=== PATIENT | male | born 1955 | race Caucasian/White ===

== ENCOUNTER 2016-04-25 13:19 | Emergency (ER) | payer OTHER ==
[2016-04-25 15:02] VITALS: BP 121/58
--- NOTE | 2016-04-25 15:37 | UC ---
Abdominal Pain Male HPI - HPI Summary HPI Summary: pt reports that he has had intermittent RLQ pain beginning on 04/21/16. Pt is concerned that he may have gall stone, pancreatitis or appendicitis - History of Current Complaint Chief Complaint: UCGeneralIllness Stated Complaint: MED REACTION-DIARRHEA Time Seen by Provider: 04/25/16 15:23 Hx Obtained From: Patient Onset/Duration: Gradual Onset Timing: Intermittent Episodes Lasting: - minutes Severity Initially: Mild Severity Currently: None Location: Discrete At: RLQ Radiates: No Character: Cramping Aggravating Factor(s):: Nothing Associated Signs And Symptoms: Positive: Negative - Allergies/Home Medications Allergies/Adverse Reactions: Allergies Allergy/AdvReac Type Severity Reaction Status Date / Time Penicillins Allergy Intermediate Rash Verified 04/25/16 14:50 PMH/Surg Hx/FS Hx/Imm Hx Previously Healthy: No - see pmh Endocrine History Of: Reports: Diabetes Cardiovascular History Of: Reports: Cardiac Disorders - heart blockage- awaiting follow up, Hypertension - Surgical History Surgical History: Yes Surgery Procedure, Year, and Place: Tonsilectomy, 1960, [facility] - Family History Known Family History: Positive: Hypertension - father, Diabetes - father Negative: Cardiac Disease - Social History Lives: With Family Alcohol Use: None Substance Use Type: None Smoking Status (MU): Never Smoked Tobacco - Immunization History Most Recent Influenza Vaccination: Fall 2014 Review of Systems Constitutional: Negative Skin: Negative Eyes: Negative ENT: Negative Respiratory: Negative Cardiovascular: Negative Gastrointestinal: Abdominal Pain Genitourinary: Negative Motor: Negative Neurovascular: Negative Musculoskeletal: Negative Neurological: Negative Psychological: Negative All Other Systems Reviewed And Are Negative: Yes Physical Exam Triage Information Reviewed: Yes Appearance: Well-Appearing Vital Signs: Initial Vital Signs Temp 98 F 04/25/16 14:52 Pulse 73 04/25/16 14:52 Resp 22 04/25/16 14:52 BP 121/58 04/25/16 14:52 Pulse Ox 100 04/25/16 14:52 Vital Signs Reviewed: Yes ENT Exam: Normal Neck exam: Normal Respiratory Exam: Normal Cardiovascular Exam: Normal Abdominal Exam: Normal Abdomen Description: Positive: Nontender Musculoskeletal Exam: Normal Neurological Exam: Normal Psychological Exam: Normal Skin Exam: Normal Abd Pain Male Course/Dx - Differential Dx/Clinical Impression Differential Diagnosis/HQI/PQRI: Appendicitis, Other - hernia Provider Diagnoses: abdominal pain Discharge - Discharge Plan Condition: Stable Disposition: HOME Patient Education Materials: Abdominal Pain (ED) Referrals: Lucero Dietz MD [Primary Care Provider] -
== END 2016-04-25 15:46 | disposition home or self-care (01) ==
LOC: UCCORT 13:19
DX: R10.31 Right lower quadrant pain (principal); Z88.0 Allergy status to penicillin
CPT/HCPCS: 99211; G0463

== ENCOUNTER 2016-07-07 16:40 | Emergency (ER) | payer OTHER ==
--- NOTE | 2016-07-07 17:35 | UC ---
Ear Complaint HPI - HPI Summary HPI Summary: pt prsent with c/o of left ear discomfort. Pt swims daily and notes that swimming ear plugs came out while swimming last week and has concern for swimmers ear. Pt also has concern about left foot. Pt has follow up with jig builder tomorrow but would like "someone" to look at his foot before the appointment. - History of Current Complaint Chief Complaint: UCEar Stated Complaint: EAR PAIN Time Seen by Provider: 07/07/16 17:15 Hx Obtained From: Patient Onset/Duration: Gradual Onset, Lasting Days Severity Initially: Mild Severity Currently: Mild - Allergies/Home Medications Allergies/Adverse Reactions: Allergies Allergy/AdvReac Type Severity Reaction Status Date / Time Penicillins Allergy Intermediate Rash Verified 07/07/16 17:09 Latex Allergy Rash Verified 07/07/16 17:10 Home Medications: Home Medications PARoxetine HCL TAB* [Paxil TAB*] 10 mg PO DAILY 07/07/16 [History Confirmed ] glipiZIDE TAB* [Glucotrol TAB*] 2.5 mg PO DAILY 07/07/16 [History Confirmed ] PMH/Surg Hx/FS Hx/Imm Hx Previously Healthy: No - see pmh Endocrine History Of: Reports: Diabetes Cardiovascular History Of: Reports: Cardiac Disorders - heart blockage- awaiting follow up, Hypertension - Surgical History Surgical History: Yes Surgery Procedure, Year, and Place: Tonsilectomy, 1960, [facility] - Family History Known Family History: Positive: Hypertension - father, Diabetes - father Negative: Cardiac Disease - Social History Alcohol Use: None Substance Use Type: None Smoking Status (MU): Never Smoked Tobacco - Immunization History Most Recent Influenza Vaccination: Fall 2014 Review of Systems Constitutional: Negative Skin: Other - history of toenail fungus, abscess left foot, tinea Eyes: Negative ENT: Ear Ache - left ear discomfort Respiratory: Negative Cardiovascular: Negative Gastrointestinal: Negative Genitourinary: Negative Motor: Negative Neurovascular: Negative Musculoskeletal: Negative Neurological: Negative Psychological: Negative All Other Systems Reviewed And Are Negative: Yes Physical Exam Triage Information Reviewed: Yes Appearance: Well-Appearing Vital Signs: Initial Vital Signs Temp 98.7 F 07/07/16 17:14 Pulse 54 07/07/16 17:14 Resp 16 07/07/16 17:14 BP 147/74 07/07/16 17:14 Pulse Ox 95 07/07/16 17:14 Vital Signs Reviewed: Yes Eye Exam: Normal ENT Exam: Other ENT: Positive: Other: - cerumen right ear canal, left ear canal mild erythema with white discharge Neck exam: Normal Respiratory: Positive: No respiratory distress Musculoskeletal Exam: Normal Neurological Exam: Normal Psychological Exam: Normal Skin Exam: Other - blood blister left big toe dorsal aspect base of toenail, PPP , thickened yellowed toeneails, dry skin on plantar side foot. Ear Complaint Course/Dx - Course Course Of Treatment: I discussed with e pt the need to follow up with his jig builder regarding his foot c/o. Pt verbalized understanding and agreed to plan of care. - Differential Dx/Diagnosis Differential Diagnosis/HQI/PQRI: Otitis Externa - left ear Provider Diagnoses: left ear Otitis externa,. tinea pedis left foot Discharge - Discharge Plan Condition: Stable Disposition: HOME Prescriptions: Hydrocortisone W/Acetic Acid [Hydrocortisone/Acetic Aci 1-2 %] 3 apply OT Q8H # 1 bottle Patient Education Materials: Otitis Externa (ED) Referrals: Lucero Dietz MD [Primary Care Provider] - If Needed (Please follow up with your PCP or return to clinic as needed. ) Additional Instructions: Please follow up with your PCP or return to clinic. With regard to your foot complaint, please keep your appointment with your jig builder on 07/08/16. It is noted that your blood pressure is elevated at todays visit. Please follow up with your PCP regarding this.
[2016-07-07 17:46] VITALS: BP 147/74
== END 2016-07-07 17:52 | disposition home or self-care (01) ==
LOC: UCCORT 16:40
DX: H60.92 Unspecified otitis externa, left ear (principal); B35.3 Tinea pedis; Z88.0 Allergy status to penicillin; E11.9 Type 2 diabetes mellitus without complications; Z79.84 Long term (current) use of oral hypoglycemic drugs
CPT/HCPCS: 99212; G0463

== ENCOUNTER 2017-02-22 14:37 | Emergency (ER) | payer OTHER ==
[2017-02-22 15:13] VITALS: BP 138/86
--- NOTE | 2017-02-22 15:29 | UC ---
Skin Complaint HPI - HPI Summary HPI Summary: C/O possible cellulitis with injury falling 02/14/17. History of cellulitis with MRSA. - History of Current Complaint Chief Complaint: UCLowerExtremity Time Seen by Provider: 02/22/17 15:20 Stated Complaint: LEFT ANKLE / CALF PAIN Hx Obtained From: Patient Onset/Duration: Sudden Onset - Slipped with slippery shoes on wet wood 02/14/17. Started hurting on the 6th., Worse Since - the 6th. Timing: Constant Onset Severity: Mild Current Severity: Moderate Location: Discrete - right calf Character: Swelling, Pain, Redness Aggravating Factor(s): Touch Alleviating Factor(s): Nothing Associated Signs & Symptoms: Positive: Cough Related History: Trauma - Allergy/Home Medications Allergies/Adverse Reactions: Allergies Allergy/AdvReac Type Severity Reaction Status Date / Time Penicillins Allergy Intermediate Rash Verified 02/22/17 15:04 Latex Allergy Rash Verified 02/22/17 15:04 Review of Systems Skin: Rash Respiratory: Cough Is Patient Immunocompromised?: No All Other Systems Reviewed And Are Negative: Yes PMH/Surg Hx/FS Hx/Imm Hx Endocrine History: Diabetes Cardiovascular History: Cardiac Disease, Hypertension - Surgical History Surgical History: Yes Surgery Procedure, Year, and Place: Tonsilectomy, 1960, [facility]. Cardiac cath May 2016 - Family History Known Family History: Positive: Hypertension - father, Diabetes - father Negative: Cardiac Disease - Social History Occupation: Retired Lives: With Family Alcohol Use: None Substance Use Type: None Smoking Status (MU): Never Smoked Tobacco Have You Smoked in the Last Year: No - Immunization History Most Recent Influenza Vaccination: Fall 2016 Physical Exam Triage Information Reviewed: Yes Appearance: Well-Appearing, No Pain Distress, Obese Vital Signs: Initial Vital Signs Temp 98 F 02/22/17 15:05 Pulse 65 02/22/17 15:05 Resp 18 02/22/17 15:05 BP 138/86 02/22/17 15:05 Pulse Ox 96 02/22/17 15:05 Vital Signs Reviewed: Yes Eyes: Positive: Conjunctiva Clear Neck exam: Normal Respiratory: Positive: Wheezing - Diffuse Cardiovascular Exam: Normal Musculoskeletal: Positive: Strength Intact, Edema @ - Left 3+ pretibial, right 1 + pretibial Neurological Exam: Normal Psychological Exam: Normal Skin: Positive: Other - Open wound, skin abrasion left posterior leg with chronic venous stasis changes. No warmth or redness. Course/Dx - Differential Diagnoses - Skin Complaint Differential Diagnoses: Cellulitis, Impetigo, Other - skin tear, laceration - Diagnoses Provider Diagnoses: Open wound left lower leg. Chronic venous stasis left leg Discharge - Discharge Plan Condition: Stable Disposition: HOME Patient Education Materials: Skin Tear (ED), Stasis Dermatitis (ED) Referrals: Lucero Dietz MD [Primary Care Provider] - Additional Instructions: continue to use the bacitracin antibiotic ointment over the skin tear and use the compression stockings to keep the swelling down as much as possible to help with healing. Images Front/Back of Body, Lg ([place]): 1 - 3x2cm skin tear. 2 - chronic venous stasis changes with scaling. 3 - chronic venous stasis change
== END 2017-02-22 15:58 | disposition home or self-care (01) ==
LOC: UCCORT 14:37
DX: S81.802A Unspecified open wound, left lower leg, initial encounter (principal); W01.0XXA Fall on same level from slipping, tripping and stumbling without subsequent striking against object, initial encounter; Y93.9 Activity, unspecified; Y92.9 Unspecified place or not applicable; I87.8 Other specified disorders of veins; R05 Cough; E11.9 Type 2 diabetes mellitus without complications; I10 Essential (primary) hypertension; E66.9 Obesity, unspecified; Z86.14 Personal history of Methicillin resistant Staphylococcus aureus infection; Z88.0 Allergy status to penicillin; Z91.040 Latex allergy status
CPT/HCPCS: 99211; G0463

== ENCOUNTER 2017-07-06 16:23 | Emergency (ER) | payer OTHER ==
[2017-07-06 16:41] VITALS: BP 130/79
--- NOTE | 2017-07-06 17:20 | UC ---
Skin Complaint HPI - HPI Summary HPI Summary: 62 yo diabetic with reported good control, but a history of cellulitis, noticed an open area and discoloration on the right fink yesterday. Day prio he removed his compression stockings in order to shower before seeing his urologist. Denies a history of trauma or any pain. No fever, not systemically unwell. - History of Current Complaint Chief Complaint: UCSkin Time Seen by Provider: 07/06/17 17:10 Stated Complaint: SKIN COMPLAINT Hx Obtained From: Patient Onset/Duration: Gradual Onset, Lasting Days - 2 Skin Exposure Onset/Duration: Days Ago - 1, noticed skin disruption right foreleg, applied silvadene Onset Severity: Mild Current Severity: Moderate Pain Intensity: 0 Location: Discrete, Other - right pretibial area, lower third. Character: Redness Aggravating Factor(s): Touch Alleviating Factor(s): Nothing Related History: Diabetes Similar Episode/Dx as: cellulitis left leg - Allergy/Home Medications Allergies/Adverse Reactions: Allergies Allergy/AdvReac Type Severity Reaction Status Date / Time latex Allergy Intermediate Rash Verified 07/06/17 16:42 Penicillins Allergy Intermediate Rash Verified 07/06/17 16:42 Home Medications: Home Medications Aspirin Low Dose CHEW TAB* [Aspirin Low Dose TAB*] 81 mg PO BEDTIME 07/06/17 [ History Confirmed 07/06/17] Review of Systems Constitutional: Other - last a1c was under 7%, late in 2017. Skin: Bruising - right foreleg with ecchymotic area, small abraded area of skin. Eyes: Negative ENT: Negative Respiratory: Negative Cardiovascular: Negative - normal heart cath in 2017 Gastrointestinal: Negative Genitourinary: Other - PSA being tracked by urology, has frequency but is on high dose of furosemide. Motor: Negative Neurovascular: Negative Musculoskeletal: Negative Neurological: Negative Psychological: Anxious Is Patient Immunocompromised?: No All Other Systems Reviewed And Are Negative: Yes PMH/Surg Hx/FS Hx/Imm Hx Endocrine History: Diabetes Cardiovascular History: Hypertension, Other Other Cardiovascular History: chronic leg edema - Surgical History Surgical History: Yes Surgery Procedure, Year, and Place: Tonsilectomy, 1960, [facility]. Cardiac cath May 2016 - Family History Known Family History: Positive: Hypertension - father, Diabetes - father Negative: Cardiac Disease - Social History Occupation: Retired Lives: With Family - mother Alcohol Use: None Substance Use Type: None Smoking Status (MU): Never Smoked Tobacco Have You Smoked in the Last Year: No - Immunization History Most Recent Influenza Vaccination: Fall 2016 Physical Exam - Summary Physical Exam Summary: morbidly obese, anxious, talkative man, with chronic bilateral leg edema with area of cellulitis right foreleg. Triage Information Reviewed: Yes Appearance: No Pain Distress, Obese Vital Signs: Initial Vital Signs Temp 98.5 F 07/06/17 16:36 Pulse 60 07/06/17 16:36 Resp 19 07/06/17 16:36 BP 130/79 07/06/17 16:36 Pulse Ox 96 07/06/17 16:36 ENT: Positive: Pharynx normal Neck: Positive: Supple, Nontender, No Lymphadenopathy Respiratory: Positive: Lungs clear, Normal breath sounds Cardiovascular: Positive: RRR, No Murmur Neurological: Positive: Alert, Muscle Tone Normal Skin Exam: Other - less than 1 cm superficial abrasion distal pre-tibial area which is not full skin thickness. Area around is erythematous over 11 cm area, roughly cirucular, no lymphantitis. Area of about 5 cm looks ecchymotic. Course/Dx - Course Course Of Treatment: begin cephalexinf for treatment of cellulitis right leg. Ensure close follow up with primary MD, advised that he be seen tomorrow. - Differential Diagnoses - Skin Complaint Differential Diagnoses: Cellulitis, Other - ecchymosis - Diagnoses Provider Diagnoses: cellulitis right leg. 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 I advise a re-check tomorrow by Dr. Dietz because of your hx of hospitalization for treatment of cellulitis in the past. Keep the area covered, and you can continue use of silvadende. Keep your leg elevated as much as possible - Billing Disposition and Condition Condition: STABLE Disposition: HOME
[2017-07-06] MEDS ORDERED: Cephalexin CAP* 500 MG PO ONE ×2 (17:29→17:30)
== END 2017-07-06 17:49 | disposition home or self-care (01) ==
LOC: UCCORT 16:23
DX: L03.115 Cellulitis of right lower limb (principal); Z88.0 Allergy status to penicillin; Z91.040 Latex allergy status; E11.9 Type 2 diabetes mellitus without complications; I10 Essential (primary) hypertension
CPT/HCPCS: 99212; A9270-GY; G0463

== ENCOUNTER 2017-09-17 15:23 | Emergency (ER) | payer OTHER ==
[2017-09-17 16:18] VITALS: BP 135/71
--- NOTE | 2017-09-17 17:35 | UC ---
Ear Complaint HPI - HPI Summary HPI Summary: 62 yo male here because he states that he is concerned he may have a fever no n/v/d no cough No UTI symtpoms no rash was admitted at [facility] late June with cellulitis swims and worries his ears are infected - History of Current Complaint Chief Complaint: UCEar Stated Complaint: BILATERAL EAR ISSUE Time Seen by Provider: 09/17/17 16:49 Hx Obtained From: Patient Onset/Duration: Other - no ear pain Severity Currently: None Pain Intensity: 0 Pain Scale Used: 0-10 Numeric - Allergies/Home Medications Allergies/Adverse Reactions: Allergies Allergy/AdvReac Type Severity Reaction Status Date / Time latex Allergy Intermediate Rash Verified 07/06/17 16:42 Penicillins Allergy Intermediate Rash Verified 07/06/17 16:42 vancomycin Allergy Itching Verified 09/17/17 16:15 Home Medications: Home Medications Enalapril TAB* [Vasotec TAB*] 40 mg PO DAILY 09/17/17 [History Confirmed ] PMH/Surg Hx/FS Hx/Imm Hx Endocrine History: Diabetes Cardiovascular History: Hypertension - Surgical History Surgical History: Yes Surgery Procedure, Year, and Place: Tonsilectomy, 1960, [facility]. Cardiac cath May 2016 - Family History Known Family History: Positive: Hypertension - father, Diabetes - father Negative: Cardiac Disease - Social History Alcohol Use: None Substance Use Type: None Smoking Status (MU): Never Smoked Tobacco Have You Smoked in the Last Year: No - Immunization History Most Recent Influenza Vaccination: Fall 2016 Review of Systems Constitutional: Negative Skin: Negative Eyes: Negative ENT: Negative Respiratory: Negative Cardiovascular: Negative Gastrointestinal: Negative Genitourinary: Negative Motor: Negative Neurovascular: Negative Musculoskeletal: Negative Neurological: Negative Psychological: Negative Is Patient Immunocompromised?: No All Other Systems Reviewed And Are Negative: Yes Physical Exam Triage Information Reviewed: Yes Appearance: Well-Appearing, No Pain Distress, Well-Nourished, Other: Vital Signs: Initial Vital Signs Temp 98.8 F 09/17/17 16:11 Pulse 61 09/17/17 16:11 Resp 18 09/17/17 16:11 BP 135/71 09/17/17 16:11 Pulse Ox 97 09/17/17 16:11 Vital Signs Reviewed: Yes Eyes: Positive: Conjunctiva Clear ENT: Positive: Hearing grossly normal, Pharynx normal, Nasal congestion, TMs normal, Uvula midline. Negative: Tonsillar swelling, Tonsillar exudate, Trismus , Muffled voice, Hoarse voice, Dental tenderness, Sinus tenderness Neck: Positive: Supple, Nontender, No Lymphadenopathy Respiratory: Positive: Lungs clear, Normal breath sounds, No respiratory distress, No accessory muscle use Cardiovascular: Positive: RRR, No Murmur Musculoskeletal: Positive: ROM Intact, No Edema Neurological: Positive: Alert Psychological Exam: Normal Skin Exam: Other - chronic venous status changes both lower extr/no cellulitis Diagnostics - Laboratory Diagnostic Studies Completed/Ordered: Udip (-) Ear Complaint Course/Dx - Differential Dx/Diagnosis Provider Diagnoses: Afebrile. No physical findings of infection Discharge - Sign-Out/Discharge Documenting (check all that apply): Discharge/Admit/Transfer - Discharge Plan Condition: Stable Disposition: HOME Referrals: Lucero Dietz MD [Primary Care Provider] - 2 Days Additional Instructions: Ears looked OK urine showed no sign of infection recheck fever/pain/rash/cough - Billing Disposition and Condition Condition: STABLE Disposition: Home
== END 2017-09-17 17:35 | disposition home or self-care (01) ==
LOC: UCCORT 15:23
DX: R50.9 Fever, unspecified (principal); Z88.0 Allergy status to penicillin; Z88.1 Allergy status to other antibiotic agents; Z91.040 Latex allergy status; I10 Essential (primary) hypertension
CPT/HCPCS: 81003; 99211; G0463

== ENCOUNTER 2018-04-21 14:34 | Emergency (ER) | payer OTHER ==
[2018-04-21 16:07] VITALS: BP 149/58
--- NOTE | 2018-04-21 16:41 | UC ---
Skin Complaint HPI - HPI Summary HPI Summary: pt c/o change in left lower leg "chronic cellulitis" Pt also states that he has a viral illness that he is concerned may be "masking" the worsening of his chronic cellulitis. - History of Current Complaint Chief Complaint: UCLowerExtremity Time Seen by Provider: 04/21/18 16:14 Stated Complaint: COLD LIKE SXS,LEFT LEG CONCERN Hx Obtained From: Patient Onset/Duration: Gradual Onset, Lasting Days, Still Present Skin Exposure Onset/Duration: Days Ago Timing: Constant Onset Severity: Mild Current Severity: Mild Pain Intensity: 0 Location: Discrete - left lower leg Character: Swelling, Redness Aggravating Factor(s): Nothing Alleviating Factor(s): Other - antibiotics Associated Signs & Symptoms: Positive: Negative Related History: Other: - history of cellulitis, venous stasis - Allergy/Home Medications Allergies/Adverse Reactions: Allergies Allergy/AdvReac Type Severity Reaction Status Date / Time latex Allergy Intermediate Rash Verified 04/21/18 16:07 Penicillins Allergy Intermediate Rash Verified 04/21/18 16:07 vancomycin Allergy Itching Verified 04/21/18 16:07 PMH/Surg Hx/FS Hx/Imm Hx Previously Healthy: Yes Endocrine History: Diabetes Cardiovascular History: Congestive Heart Failure - Surgical History Surgical History: Yes Surgery Procedure, Year, and Place: Tonsilectomy, 1960, [facility]. Cardiac cath May 2016 - Family History Known Family History: Positive: Hypertension - father, Diabetes - father Negative: Cardiac Disease - Social History Occupation: Disabled Lives: With Family Alcohol Use: None Substance Use Type: None Smoking Status (MU): Never Smoked Tobacco Have You Smoked in the Last Year: No - Immunization History Most Recent Influenza Vaccination: Fall 2016 Review of Systems All Other Systems Reviewed And Are Negative: Yes Constitutional: Positive: Negative Skin: Positive: Rash Eyes: Positive: Negative ENT: Positive: Nasal Discharge, Sinus Congestion Respiratory: Positive: Cough Cardiovascular: Positive: Negative Gastrointestinal: Positive: Negative Genitourinary: Positive: Negative Motor: Positive: Negative Neurovascular: Positive: Negative Musculoskeletal: Positive: Negative Neurological: Positive: Negative Psychological: Positive: Negative Is Patient Immunocompromised?: No Physical Exam Triage Information Reviewed: Yes Appearance: Well-Appearing, Obese Vital Signs: Initial Vital Signs Temp 97.8 F 04/21/18 16:00 Pulse 76 04/21/18 16:00 Resp 16 04/21/18 16:00 BP 149/58 04/21/18 16:00 Pulse Ox 98 04/21/18 16:00 Vital Signs Reviewed: Yes Eye Exam: Normal ENT: Positive: Nasal congestion Dental Exam: Normal Neck exam: Normal Respiratory Exam: Normal Cardiovascular Exam: Normal Musculoskeletal: Positive: Edema @ - bilateral lower extremitis, non pitting. Pt is on furosemide, venous stasis left lower leg, healing wound under bandage that pt declined to remove. Pt is concerned about darkening of left lower venous stasis and has darkened 2 circular areas ~ 3 cm in diameter. Pt denies pain with palpation Neurological Exam: Normal Psychological Exam: Normal Skin Exam: Other - bilateral lower extremitis, non pitting. Pt is on furosemide , venous stasis left lower leg, healing wound under bandage that pt declined to remove. Pt is concerned about darkening of left lower venous stasis and has darkened 2 circular areas ~ 3 cm in diameter. Pt denies pain with palpation Course/Dx - Differential Diagnoses - Skin Complaint Differential Diagnoses: Cellulitis, MRSA, Tinea, Other - DVT - Diagnoses Provider Diagnosis: Cellulitis of left lower extremity, Viral syndrome Discharge - Sign-Out/Discharge Documenting (check all that apply): Patient Departure All imaging exams completed and their final reports reviewed: No Studies - Discharge Plan Condition: Stable Disposition: HOME Prescriptions: DOXYcycline CAP(*) [DOXYcycline 100MG CAP(*)] 100 mg PO Q12H #20 cap Patient Education Materials: Cellulitis (ED) Referrals: Lucero Dietz MD [Primary Care Provider] - As Soon As Possible - Billing Disposition and Condition Condition: STABLE Disposition: Home
== END 2018-04-21 16:48 | disposition home or self-care (01) ==
LOC: UCCORT 14:34
DX: L03.116 Cellulitis of left lower limb (principal); B34.9 Viral infection, unspecified; Z88.0 Allergy status to penicillin; Z88.1 Allergy status to other antibiotic agents; Z11.9 Encounter for screening for infectious and parasitic diseases, unspecified; I50.9 Heart failure, unspecified
CPT/HCPCS: 99212; G0463

== ENCOUNTER 2018-07-07 15:40 | Emergency (ER) | payer OTHER ==
[2018-07-07 16:29] VITALS: BP 106/52
--- NOTE | 2018-07-07 18:02 | UC ---
Skin Complaint HPI - HPI Summary HPI Summary: 63 yo male with the onset of right fink redness noted today he has a hx of cellulitis resulting in an extended hospitalization no open skin hx of venous status ulcer DM - History of Current Complaint Chief Complaint: UCLowerExtremity Time Seen by Provider: 07/07/18 17:46 Stated Complaint: RIGHT LEG SKIN COMPLAINT Onset/Duration: Gradual Onset, Lasting Hours Timing: Constant Onset Severity: Mild Current Severity: Mild Pain Intensity: 0 Pain Scale Used: 0-10 Numeric Location: Discrete Character: Redness Associated Signs & Symptoms: Positive: Rash - Allergy/Home Medications Allergies/Adverse Reactions: Allergies Allergy/AdvReac Type Severity Reaction Status Date / Time latex Allergy Intermediate Rash Verified 07/07/18 16:22 Penicillins Allergy Intermediate Rash Verified 07/07/18 16:22 vancomycin Allergy Itching Verified 07/07/18 16:22 PMH/Surg Hx/FS Hx/Imm Hx Previously Healthy: Yes Endocrine History: Diabetes, Dyslipidemia Cardiovascular History: Hypertension - Surgical History Surgical History: Yes Surgery Procedure, Year, and Place: Tonsilectomy, 1960, [facility]. Cardiac cath May 2016 - Family History Known Family History: Positive: Hypertension - father, Diabetes - father Negative: Cardiac Disease - Social History Alcohol Use: None Substance Use Type: None Smoking Status (MU): Never Smoked Tobacco Have You Smoked in the Last Year: No - Immunization History Most Recent Influenza Vaccination: Fall 2016 Review of Systems All Other Systems Reviewed And Are Negative: Yes Constitutional: Positive: Negative Skin: Positive: Rash Eyes: Positive: Negative ENT: Positive: Negative Respiratory: Positive: Negative Cardiovascular: Positive: Negative Gastrointestinal: Positive: Negative Genitourinary: Positive: Negative Motor: Positive: Negative Neurovascular: Positive: Negative Musculoskeletal: Positive: Negative Neurological: Positive: Negative Psychological: Positive: Negative Physical Exam Triage Information Reviewed: Yes Appearance: Well-Appearing, No Pain Distress, Well-Nourished Vital Signs: Initial Vital Signs Temp 97.5 F 07/07/18 16:24 Pulse 56 07/07/18 16:24 Resp 20 07/07/18 16:24 BP 106/52 07/07/18 16:24 Pulse Ox 98 07/07/18 16:24 Vital Signs Reviewed: Yes Eye Exam: Normal ENT: Positive: Hearing grossly normal, Uvula midline. Negative: Nasal congestion, Nasal drainage, Trismus, Muffled voice, Hoarse voice Dental Exam: Normal Neck: Positive: Supple, Nontender, No Lymphadenopathy Respiratory: Positive: Lungs clear, Normal breath sounds, No respiratory distress, No accessory muscle use Cardiovascular: Positive: RRR Abdominal Exam: Normal Musculoskeletal: Positive: ROM Intact, No Edema Neurological: Positive: Alert Psychological Exam: Normal Skin Exam: Other - see image Images Front/Back of Body, Lg ([place]): 1 - faint erythema/skin appears intact/ venous status changes Course/Dx - Diagnoses Provider Diagnosis: Cellulitis of right lower extremity Discharge - Sign-Out/Discharge Documenting (check all that apply): Patient Departure All imaging exams completed and their final reports reviewed: No Studies - Discharge Plan Condition: Stable Disposition: HOME Prescriptions: Cephalexin CAP* [Keflex CAP*] 500 mg PO QID #28 cap Patient Education Materials: Cellulitis (ED) Referrals: Lucero Dietz MD [Primary Care Provider] - Additional Instructions: recheck for new or worsening symptoms - Billing Disposition and Condition Condition: STABLE Disposition: Home
== END 2018-07-07 18:09 | disposition home or self-care (01) ==
LOC: UCCORT 15:40
DX: L03.115 Cellulitis of right lower limb (principal); Z91.040 Latex allergy status; Z88.0 Allergy status to penicillin; Z88.1 Allergy status to other antibiotic agents
CPT/HCPCS: 99212; G0463

== ENCOUNTER 2018-11-12 17:27 | Emergency (ER) | payer OTHER ==
[2018-11-12 18:10] VITALS: BP 114/80
--- NOTE | 2018-11-12 18:45 | UC ---
Skin Complaint HPI - HPI Summary HPI Summary: Patient is a 63-year-old male, history of obesity, hypertension, diabetes, here with suspected cellulitis. Patient's had erythema to his right fink that he noticed today. Patient wears compression stockings on a daily basis and has not looked at his legs in 10 days. Patient has a history of cellulitis of the left lower extremity requiring hospitalization. Patient has no fever, chills, nausea, vomiting. - History of Current Complaint Chief Complaint: UCLowerExtremity Time Seen by Provider: 11/12/18 18:32 Stated Complaint: RT FINK CONCERN Onset/Duration: Sudden Onset Pain Intensity: 0 - Allergy/Home Medications Allergies/Adverse Reactions: Allergies Allergy/AdvReac Type Severity Reaction Status Date / Time latex Allergy Intermediate Rash Verified 11/12/18 17:57 Penicillins Allergy Intermediate Rash Verified 11/12/18 17:57 vancomycin Allergy Itching Verified 11/12/18 17:57 Bactrim Allergy gagging Uncoded 11/12/18 19:01 Home Medications: Home Medications Enalapril Maleate 40 mg PO DAILY 11/12/18 [History Confirmed 11/12/18] PMH/Surg Hx/FS Hx/Imm Hx Endocrine History: Diabetes Cardiovascular History: Hypertension - Surgical History Surgical History: Yes Surgery Procedure, Year, and Place: Tonsilectomy, 1960, [facility]. Cardiac cath May 2016 - Family History Known Family History: Positive: Hypertension - father, Diabetes - father Negative: Cardiac Disease - Social History Alcohol Use: None Substance Use Type: None Smoking Status (MU): Never Smoked Tobacco Have You Smoked in the Last Year: No - Immunization History Most Recent Influenza Vaccination: Fall 2016 Review of Systems All Other Systems Reviewed And Are Negative: Yes Constitutional: Negative: Fever, Chills Eyes: Negative: Blurred Vision ENT: Negative: Sore Throat, Nasal Discharge Respiratory: Negative: Shortness Of Breath, Cough Cardiovascular: Negative: Palpitations Physical Exam - Summary Physical Exam Summary: Vital Signs Reviewed: Yes A+Ox3, no distress Eyes: Conjunctiva Clear ENT: Hearing grossly normal neck: supple Respiratory: Positive: No respiratory distress, No accessory muscle use Cardiovascular: skin color reflect adequate perfusion Musculoskeletal Exam: Right lower extremity: Area of ecchymosis and erythema to the anterior fink with clear borders. Area is not warm or tender. Neurological: Positive: Alert, ambulatory without difficulty Vital Signs: Initial Vital Signs Temp 97.9 F 11/12/18 17:59 Pulse 89 11/12/18 17:59 Resp 20 11/12/18 17:59 BP 114/80 11/12/18 17:59 Pulse Ox 97 11/12/18 17:59 Course/Dx - Course Course Of Treatment: Patient is here with likely ecchymosis to the right fink but has a couple scattered history of recurrent cellulitis in the left lower extremity that he says look like this. 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 Patient's overall well-appearing and denies any recent trauma. Patient be treated empirically given his history with doxycycline. - Diagnoses Provider Diagnosis: Cellulitis of leg Discharge - Sign-Out/Discharge Documenting (check all that apply): Patient Departure All imaging exams completed and their final reports reviewed: No Studies - Discharge Plan Condition: Stable Disposition: HOME Prescriptions: DOXYcycline CAP(*) [DOXYcycline 100MG CAP(*)] 100 mg PO BID 10 Days #20 cap Patient Education Materials: Cellulitis (ED) Referrals: Lucero Dietz MD [Primary Care Provider] - Additional Instructions: Please take your antibiotics as prescribed Please go straight to the emergency department if he develops fever, worsening redness, worsening swelling - Billing Disposition and Condition Condition: STABLE Disposition: Home
== END 2018-11-12 19:14 | disposition home or self-care (01) ==
LOC: UCCORT 17:27
DX: L03.115 Cellulitis of right lower limb (principal); I10 Essential (primary) hypertension; E11.9 Type 2 diabetes mellitus without complications; Z88.0 Allergy status to penicillin; Z88.1 Allergy status to other antibiotic agents
CPT/HCPCS: 99212; G0463

== ENCOUNTER 2019-01-17 16:00 | Emergency (ER) | payer OTHER ==
[2019-01-17 16:15] VITALS: BP 117/76
--- NOTE | 2019-01-17 16:40 | UC ---
Lower Extremity/Ankle HPI - HPI Summary HPI Summary: 63 yo diabetic who had left foot surgery 12/10, and he is not certain of the procedure which was done. He has an incision over the 5th metatarsal about 7 cm long, with scant drainage from it. He is concerned about drainage and about discharge from the interdigital space between the 4th and 5th digits of the foot. hx of diabetic neuropathy; sees podiastrist for nail care. In the past he has used lamisil for treatment of tinea pedis, not certain when this was last used. He has a coban dresssing on the left foreleg which is causing edema superior secondary to excess compression. He chose not to seek care from Dr. Alarcon, his surgeon, because he was concerned that he would be held responsible for the problem. - History of Current Complaint Chief Complaint: YUEkin Stated Complaint: L FOOT COMP Time Seen by Provider: 01/17/19 16:28 Hx Obtained From: Patient Onset/Duration: Gradual Onset, Lasting Weeks - has had drainage from the wound for 2 to 3 weeks. Severity Initially: Mild Severity Currently: Moderate Pain Intensity: 0 Aggravating Factor(s): Standing, Ambulation Alleviating Factor(s): Nothing Able to Bear Weight: Yes - Risk Factors Gout Risk Factors: Age Over 40, Diabetes DVT Risk Factors: Recent Surgery Septic Arthritis Risk Factor: Negative - Allergies/Home Medications Allergies/Adverse Reactions: Allergies Allergy/AdvReac Type Severity Reaction Status Date / Time latex Allergy Intermediate Rash Verified 01/17/19 16:16 Penicillins Allergy Intermediate Rash Verified 01/17/19 16:16 vancomycin Allergy Itching Verified 01/17/19 16:16 Bactrim Allergy gagging Uncoded 01/17/19 16:16 PMH/Surg Hx/FS Hx/Imm Hx Endocrine History: Diabetes Cardiovascular History: Hypertension, Other - past cardiac cath did not show arterial disease; he has chronic venous stasis. Neurological History: Other - diabetic neuropathy - Surgical History Surgical History: Yes Surgery Procedure, Year, and Place: Tonsilectomy, 1960, [facility]. Cardiac cath May 2016. L foot callous removal - Family History Known Family History: Positive: Hypertension - father, Diabetes - father Negative: Cardiac Disease - Social History Occupation: Disabled Lives: With Family Alcohol Use: None Substance Use Type: None Smoking Status (MU): Never Smoked Tobacco Have You Smoked in the Last Year: No - Immunization History Most Recent Influenza Vaccination: Fall 2016 Review of Systems All Other Systems Reviewed And Are Negative: Yes Constitutional: Positive: Negative Skin: Positive: Other - drainage, foot pain Eyes: Positive: Negative ENT: Positive: Negative Respiratory: Negative: Shortness Of Breath, Cough Cardiovascular: Negative: Palpitations, Chest Pain Gastrointestinal: Positive: Negative Genitourinary: Positive: Negative Motor: Positive: Negative Neurovascular: Positive: Negative Musculoskeletal: Positive: Negative Neurological: Negative: Headache Psychological: Positive: Anxious Is Patient Immunocompromised?: No Physical Exam Triage Information Reviewed: Yes Appearance: No Pain Distress, Ill-Appearing - looks chronically unwell, Obese Vital Signs: Initial Vital Signs Temp 98.0 F 01/17/19 16:10 Pulse 66 01/17/19 16:10 Resp 16 01/17/19 16:10 BP 117/76 01/17/19 16:10 Pulse Ox 96 01/17/19 16:10 Neck: Positive: Supple, Nontender, No Lymphadenopathy Respiratory: Positive: Lungs clear, Normal breath sounds Cardiovascular: Positive: RRR, No Murmur Musculoskeletal: Positive: Strength Intact Neurological Exam: Other - decreased sensation in feet Skin Exam: Other - left foot with deep erythema from lateral border of foot to toes, measuring about 13 x 6 cm Interdigital maceration between toes, deep callus under toes. Skin: Positive: Other - scant purulent drainage from foot incision--sent for culture. Lower Extremity Course/Dx - Course Course Of Treatment: begin cephalexin, advised MUST see surgeon for reassessment. He has used cephalexin in the past without reaction. Wound culture done. treat tinea pedis. Discussed that he cannot use coban as he is causing compromise of venous return. - Differential Dx/Diagnosis Differential Diagnosis/HQI/PQRI: Cellulitis, Infection, Other - tinea pedis Provider Diagnosis: Cellulitis of left foot, Tinea pedis Discharge ED - Sign-Out/Discharge Documenting (check all that apply): Patient Departure All imaging exams completed and their final reports reviewed: No Studies - Discharge Plan Condition: Stable Disposition: HOME Prescriptions: Cephalexin CAP* [Keflex 500 CAP*] 500 mg PO QID #28 cap Econazole 1% CREAM (NF) [Econazole 1 % CREAM (NF)] 1 applic TOPICAL BID #45 gm Patient Education Materials: Cellulitis (ED), Athlete's Foot (ED) Referrals: Lucero Dietz MD [Primary Care Provider] - Jeramie Alarcon DPM [Doctor of Podiatric Medicine] - Additional Instructions: Begin cephlaxin for treatment of foot infection. You also have athlete's foot--use econazole twice daily after soaking and DRYING your feet well. Keep your feet elevated. IT IS ESSENTIAL THAT YOU SCHEDULE A FOLLOW UP WITH YOUR SURGEON DR. ALARCON IN 2 TO 3 DAYS. When you apply the SYBIL wrap to your foot, you cannot apply it so tightly that you are causing swelling above the dressing! This is creating a risk to the ciruculation of the foot. - Billing Disposition and Condition Condition: STABLE Disposition: Home
[2019-01-17] MEDS ORDERED: Cephalexin CAP* 500 MG PO ONE (17:24)
== END 2019-01-17 17:39 | disposition home or self-care (01) ==
LOC: UCCORT 16:00
DX: L03.116 Cellulitis of left lower limb (principal); E11.9 Type 2 diabetes mellitus without complications; I10 Essential (primary) hypertension; Z88.0 Allergy status to penicillin; Z88.1 Allergy status to other antibiotic agents; Z88.2 Allergy status to sulfonamides; Z91.040 Latex allergy status
CPT/HCPCS: 87070; 87077; 87186; 87205; 87640; 87641; 99213; A9270-GY; G0463